=== PATIENT | female | born 1965 | race African-American/Black ===

== ENCOUNTER 2021-07-06 10:23 | Emergency (ER) | payer BC, OTHER ==
[2021-07-06] MEDS ORDERED: Ketorolac Tromethamine 30 MG/ML VIAL ONE (11:26)
[2021-07-06] MEDS ORDERED: Morphine 4 MG/ML VIAL ONE (12:51)
== END 2021-07-06 13:23 | disposition home or self-care (01) ==
LOC: CSHERS 10:23
DX: S42.341A Displaced spiral fracture of shaft of humerus, right arm, initial encounter for closed fracture (principal); W19.XXXA Unspecified fall, initial encounter
CPT/HCPCS: 96374; 96375; J1885; J2270